=== PATIENT | female | born 1945 | race Two or more races ===

== ENCOUNTER 2017-07-02 07:27 | Day surgery (SDC) | payer MEDICARE, OTHER ==
[~2017-07-02] VITALS: Ht 157.5 cm; Wt 90.7 kg
[2017-07-02 07:57] VITALS: Ht 157.5 cm; Wt 90.7 kg
[2017-07-02] MEDS ORDERED: PROPOFOL 20 ML ONE (08:16)
[2017-07-02] MEDS ORDERED: FENTAnyl 50 MCG/ML VIAL ONE (08:16)
[2017-07-02] MEDS ORDERED: ASPI-664 PO (08:22)
[2017-07-02] MEDS ORDERED: INSULIN SQ (08:22)
[2017-07-02] MEDS ORDERED: AMLO-147 PO (08:22)
[2017-07-02] MEDS ORDERED: LOSA50TA6 PO (08:22)
[2017-07-02] MEDS ORDERED: MTF1000T PO (08:22)
[2017-07-02 08:31] VITALS: BP 172/77; PULSE 75; RESP 18
--- NOTE | 2017-07-02 09:50 | OPPN ---
Date/Time of Note Date/Time of Note DATE: 07/02/17 TIME: 09:48 Operative Report Preoperative Diagnosis Screening Postoperative Diagnosis Multiple colon polyps Internal hemorrhoids Operation/Procedure Performed Colonoscopy biopsy and polypectomy Provider: HEIDI CEBALLOS MD Anesthesia Type: MAC Estimated blood loss: none Transfusion Required: no Specimens Colon polyp Grafts/Implants: none Complications: no HEIDI CEBALLOS MD Jul 02, 2017 09:50
[2017-07-02 10:13] VITALS: BP 121/62; PULSE 73; RESP 14
--- NOTE | 2017-07-02 15:59 | GILP ---
DATE OF PROCEDURE: 07/02/2017 PROCEDURE PERFORMED: Colonoscopy, biopsy and polypectomy. SURGEON: Kieran Mccarthy MD. PREOPERATIVE DIAGNOSIS: Screening colonoscopy. POSTOPERATIVE DIAGNOSES: 1. Colonoscopy all the way to the cecum. 2. Multiple colon polyps. 3. Flat polyp in the right colon was removed in pieces using the snare and electrocautery. 4. Multiple colon polyps all over the colon. They were removed using the biopsy forceps as well as snare and electrocautery. 5. Internal hemorrhoids. INDICATION: Ms. Awilda Boudreaux is a 71-year-old female patient who noticed change in the bowel habits. She never had a screening colonoscopy. Patient was scheduled for screening colonoscopy. The procedure and possible complications were well explained to the patient. She understood and consented to the procedure. PROCEDURE: Under the influence of anesthesia, the colonoscope was carefully introduced in the rectum. Under direct vision, it was advanced all the way to the cecum. FINDINGS: The patient had a large flat polyp in the right colon, and it was removed in pieces using the snare and electrocautery. The patient also had multiple colon polyps all over the colon, and some of them were removed using the biopsy forceps, and others with snare and electrocautery. The patient was noted to have internal hemorrhoids. She tolerated the procedure very well. There was no complication from the procedure. At the end of procedure, she was awake with stable vital signs, and she was discharged home in care of her family. IMPRESSION: Please see postop diagnoses. PLAN: 1. Await histopathology report. 2. Because of the multiple polyps the patient had, and because of the fact the flat polyp in the right colon was removed in pieces, the patient will need repeat colonoscopy in 6 months to remove other small polyps and to make sure there are no remnants left in the flat polyp in the right colon. Dictated By: MD POLLO Pastrana/shaheen/aman /Document#: [id number]
== END 2017-07-02 11:47 | disposition home or self-care (01) ==
LOC: GIL 07:27
PROVIDERS: ATTEND Internal Medicine Gastroenterology
DX: R19.4 Change in bowel habit (principal); K63.5 Polyp of colon; K64.8 Other hemorrhoids; E11.9 Type 2 diabetes mellitus without complications; E66.9 Obesity, unspecified; Z68.36 Body mass index [BMI] 36.0-36.9, adult
CPT/HCPCS: 45385; 82962; 88305; J3010

== ENCOUNTER 2018-01-01 07:20 | Day surgery (SDC) | END 2018-01-01 14:04 | disposition home or self-care (01) ==

== ENCOUNTER 2018-11-25 16:53 | Observation (INO) | payer MEDICARE, OTHER ==
[~2018-11-25] VITALS: Ht 160 cm; Wt 98.9 kg
[~2018-11-25 16:53] MED LIST: AMLO-147 PO; ASPI-817 PO; INSULIN SQ; LOSA50TA14 PO; MTF1000T PO
[2018-11-25] MEDS ORDERED: ASPIRIN 81 MG TAB PO STA (17:20)
[2018-11-25] MEDS ORDERED: NITROGLYCERIN 2% 1 GM OINT PKT TD STA (17:20)
[2018-11-25] MEDS ORDERED: NITROGLYCERIN (SL) 0.4 MG TAB SL PRN ×2 (17:30→19:00)
[2018-11-25] MEDS ORDERED: LOSA100T15 PO (18:14)
[2018-11-25] MEDS ORDERED: AMLO-147 PO (18:14)
[2018-11-25] MEDS ORDERED: ASPI-817 PO (18:14)
[2018-11-25] MEDS ORDERED: NOVO7030 SC (18:15)
[2018-11-25] MEDS ORDERED: METF100010 PO (18:15)
[2018-11-25] MEDS ORDERED: METO-407 PO (18:15)
[2018-11-25] MEDS ORDERED: MULT-130 PO (18:16)
[2018-11-25] MEDS ORDERED: PIOG30TA71 PO (18:16)
[2018-11-25] MEDS ORDERED: HYDR-3672 PO (18:16)
--- NOTE | 2018-11-25 18:55 | ERD ---
ER Documentation Chief Complaint Chief Complaint Complains of chest pain and pressure with SOB x 3 days HPI Patient is a 73-year-old female with hypertension and diabetes who presents with chest pain and shortness of breath. She has had the symptoms for the past 2 weeks. She said that the chest pain is a pressure-like pain in the sternal area which is worsening in intensity. She denies fevers. She tried TheraFlu with no help. She does have a primary doctor. ROS All systems reviewed and are negative except as per history of present illness. Medications Home Meds Reported Medications Multivitamins-Min/Fa/Ginkgo (ONE DAILY FOR WOMEN 50+ ADV TB) 1 Each Tablet, 1 EACH PO DAILY, TAB 11/25/18 Pioglitazone Hcl* (Pioglitazone Hcl*) 30 Mg Tablet, 30 MG PO DAILY, TAB 11/25/18 Hydralazine Hcl* (Hydralazine Hcl*) 50 Mg Tab, 50 MG PO TID, #90 TAB 11/25/18 Metoprolol Tartrate* (Lopressor*) 100 Mg Tablet, 100 MG PO BID, #60 TAB 11/25/18 Insulin Isophan/Regular (Humulin 70/30) 100 Units/Ml Susp, 15 UNIT SC HS, EA 11/25/18 Metformin Hcl* (Metformin Hcl*) 1,000 Mg Tablet, 1000 MG PO WITH BREAKFAST DINNE, #60 TAB 11/25/18 Losartan Potassium* (Losartan Potassium*) 100 Mg Tablet, 100 MG PO DAILY, TAB 11/25/18 Aspirin* (Aspirin* EC) 81 Mg Tablet.dr, 81 MG PO DAILY, TAB 11/25/18 Amlodipine Besylate* (Amlodipine Besylate*) 10 Mg Tablet, 10 MG PO DAILY, #30 TAB 11/25/18 Discontinued Reported Medications [Insulin] No Conflict Check, SQ 07/02/17 Aspirin* (Aspirin* EC) 81 Mg Tablet.dr, 81 MG PO DAILY, TAB 07/02/17 Amlodipine Besylate* (Amlodipine Besylate*) 10 Mg Tablet, 10 MG PO DAILY, #30 TAB 07/02/17 Losartan Potassium* (Losartan Potassium*) 50 Mg Tablet, 50 MG PO DAILY, TAB 07/02/17 Metformin* (Glucophage*) 1,000 Mg Tablet, 1000 MG PO BID, #60 TAB 07/02/17 Allergies Allergies: Coded Allergies: No Known Allergy (Unverified , 11/25/18) PMhx/Soc History of Surgery: Yes (HYSTERECTOMY) Anesthesia Reaction: No Hx Neurological Disorder: No Hx Respiratory Disorders: No Hx Cardiac Disorders: No Hx Psychiatric Problems: No Hx Miscellaneous Medical Probl: No Hx Alcohol Use: No Hx Substance Use: No Hx Tobacco Use: No Smoking Status: Never smoker FmHx Family History: coronary disease Physical Exam Vitals Vital Signs Date Temp Pulse Resp B/P (MAP) Pulse Ox O2 O2 Flow FiO2 Time Delivery Rate 11/25/18 97.8 93 12 122/71 100 Nasal 18:40 (88) Cannula 11/25/18 Nasal 2 17:23 Cannula 11/25/18 97.8 105 20 136/66 99 16:58 (89) Physical Exam Const: No acute distress Head: Atraumatic Eyes: Normal Conjunctiva ENT: Normal External Ears, Nose and Mouth. Neck: Full range of motion. No meningismus. Resp: Clear to auscultation bilaterally Cardio: Regular rate and rhythm, no murmurs Abd: Soft, non tender, non distended. Normal bowel sounds Skin: No petechiae or rashes Back: No midline or flank tenderness Ext: No cyanosis, or edema Neur: Awake and alert Psych: Normal Mood and Affect Result Diagram: 11/25/18 1720 11/25/18 1720 Results 24 hrs Laboratory Tests Test 11/25/18 17:20 White Blood Count 7.6 10^3/ul Red Blood Count 4.02 10^6/ul Hemoglobin 12.0 g/dl Hematocrit 37.2 % Mean Corpuscular Volume 92.5 fl Mean Corpuscular Hemoglobin 29.9 pg Mean Corpuscular Hemoglobin Concent 32.3 g/dl Red Cell Distribution Width 15.0 % Platelet Count 200 10^3/UL Mean Platelet Volume 10.3 fl Immature Granulocytes % 0.400 % Neutrophils % 44.0 % Lymphocytes % 43.0 % Monocytes % 9.8 % Eosinophils % 1.6 % Basophils % 1.2 % Nucleated Red Blood Cells % 0.0 /100WBC Immature Granulocytes # 0.030 10^3/ul Neutrophils # 3.4 10^3/ul Lymphocytes # 3.3 10^3/ul Monocytes # 0.8 10^3/ul Eosinophils # 0.1 10^3/ul Basophils # 0.1 10^3/ul Nucleated Red Blood Cells # 0.0 10^3/ul Sodium Level 137 mmol/L Potassium Level 3.8 mmol/L Chloride Level 101 mmol/L Carbon Dioxide Level 27 mmol/L Anion Gap 9 Blood Urea Nitrogen 17 mg/dl Creatinine 0.77 mg/dl Est Glomerular Filtrat Rate mL/min mL/min Glucose Level 233 mg/dl Calcium Level 9.6 mg/dl Troponin I < 0.012 ng/ml Current Medications Medications Dose Sig/Ramona Start Time Status Last (Trade) Ordered Route PRN Stop Time Admin Dose Reason Admin Aspirin 162 mg ONCE STAT 11/25/18 DC 11/25/18 (Aspirin) PO 17:20 17:43 11/25/18 17:21 1 inch ONCE STAT 11/25/18 DC 11/25/18 Nitroglycerin TD 17:20 17:43 11/25/18 17:21 (Nitroglyceri n 2% Oint) 1 tab Q5M UP TO 3 11/25/18 Nitroglycerin DOSES PRN 17:30 SL CHEST (Nitroglyceri PAIN n (Sl Tab) 0.4 Mg) Ondansetron 4 mg ER BRIDGE 11/25/18 HCl (Zofran PRN IV 19:00 Inj) NAUSEA AND/OR 11/26/18 18:59 VOMITING 650 mg ER BRIDGE 11/25/18 Acetaminophen PRN PO MILD 19:00 (Tylenol PAIN(1-3)OR 11/26/18 18:59 Tab) ELEVATED TEMP Amlodipine 10 mg DAILY PO 11/26/18 UNV Besylate 09:00 (Norvasc) Aspirin 81 mg DAILY PO 11/26/18 UNV (Halfprin) 09:00 Hydralazine 50 mg TID PO 11/25/18 UNV HCl 21:00 (Apresoline) Losartan 100 mg DAILY PO 11/26/18 UNV Potassium 09:00 (Cozaar) Metoprolol 100 mg BID PO 11/25/18 UNV Tartrate 21:00 (Lopressor) Insulin 15 unit QHS SC 11/25/18 UNV Aspart Prota 21:00 70%/Aspart 30% (Novolog Mix (70/ 30) Flexpen) IV Flush 3 ml PER 11/25/18 UNV (NS 3 ml) PROTOCOL IV 19:00 Ondansetron 4 mg Q6H PRN 11/25/18 UNV HCl (Zofran IV NAUSEA 19:00 Inj) AND/OR VOMITING 1 tab Q5M PRN 11/25/18 UNV Nitroglycerin SL CHEST 19:00 PAIN (Nitroglyceri n (Sl Tab) 0.4 Mg) 650 mg Q6H PRN 11/25/18 UNV Acetaminophen PO PAIN 19:00 (Tylenol LEVEL 1-3 OR Tab) FEVER Docusate 100 mg Q12H PRN 11/25/18 UNV Sodium PO 19:00 (Colace) CONSTIPATION Magnesium 30 ml DAILY PRN 11/25/18 UNV Hydroxide PO 19:00 (Milk Of Mag) CONSTIPATION 40 mg DAILY@06 11/26/18 UNV Pantoprazole PO 06:00 (Protonix Tab) Enoxaparin 40 mg DAILY SC 11/26/18 UNV Sodium 09:00 (Lovenox) Ceftriaxone 50 ml @ Q24H IVPB 11/25/18 UNV Sodium 100 mls/hr 19:00 Azithromycin 250 ml @ Q24H IV 11/25/18 UNV 250 mls/hr 19:00 Albuterol 2.5 mg Q2H RESP 11/25/18 UNV (Proventil THERAPY PRN 19:00 0.083% (Neb)) NEB SHORTNESS OF BREATH Albuterol 2.5 mg Q6HWA RESP 11/25/18 UNV (Proventil THERAPY HHN 20:00 0.083% (Neb)) Procedures/MDM EKG read by me: Rate/Rhythm: Regular rate and rhythm at a rate of 86 Intervals: Normal Impression: No evidence of ischemia or arrhythmia Chest x-ray read by radiology. Patient is a 73-year-old female with hypertension and diabetes who presents with chest pain. I am concerned for possible acute coronary syndrome. I doubt pneumonia, pneumothorax, pulmonary embolism, or aortic dissection. The patient will be admitted to the care of Dr. Spain from the panel team to a telemetry observation bed. She was given aspirin and nitroglycerin empirically. Departure Diagnosis: Primary Impression: Chest pain Chest pain type: unspecified Qualified Codes: R07.9 - Chest pain, unspecified Condition: CHRISTOPHER Shultz MD Nov 25, 2018 18:54
[2018-11-25] MEDS ORDERED: ONDANSETRON 4 MG INJ IV PRN ×2 (19:00)
[2018-11-25] MEDS ORDERED: ACETAMINOPHEN 325 MG TAB PO PRN ×2 (19:00)
[2018-11-25] MEDS ORDERED: MAGNESIUM HYDROXIDE 30ML CUP PO PRN (19:00)
[2018-11-25] MEDS ORDERED: GLUCOSE GEL 15 GRAM TUBE PO PRN ×2 (19:00)
[2018-11-25] MEDS ORDERED: DOCUSATE SODIUM 100 MG CAP PO PRN (19:00)
[2018-11-25] MEDS ORDERED: NACL 0.9% 3 ML SYG IV SCH (19:00)
[2018-11-25] MEDS ORDERED: GLUCOSE GEL 15 GRAM TUBE BUCCAL PRN (19:00)
[2018-11-25] MEDS ORDERED: ALBUTEROL 0.083% (NEB) 2.5 MG/3 ML AMP NEB PRN (19:00)
[2018-11-25] MEDS ORDERED: DEXTROSE 50% 50 ML SYRINGE IV PRN ×2 (19:00)
[2018-11-25] MEDS ORDERED: GLUCAGON 1 MG INJ IM PRN (19:00)
--- NOTE | 2018-11-25 19:13 | HP ---
Date/Time of Note Date/Time of Note DATE: 11/25/18 TIME: 19:00 Assessment/Plan VTE Prophylaxis Pharmacological prophylaxis: LMWH Lines/Catheters IV Catheter Type (from Nrsg): Saline Lock Assessment/Plan Assessment/Plan 1. Acute shortness of breath secondary to RLL PNA - Seen on CXR and patient states she has been experiencing respiratory issues for the past 2 weeks - Will started on broad spectrum antibiotics - Nebs q6 and PRN - antitussive for cough suppressant - wean off O2 to maintain saturations 2. Acute chest pain - reproducible and most likely musculoskeletal given coughing for the past 2 weeks - will continue to trend serial troponins - ECHO ordered - If needed will consult cardiology - will check TSH and Lipid panel 3. DM - will check A1c - ISS and accuchecks - hold PO medications - continue on 70/30 qhs 4. HTN - continue home medications and adjust as needed 5. Diet - carb/cardiac 6. GI ppx - PPI 7. DVT ppx - LMWH 8. Disposition - Admit to telemetry for treatment of pneumonia Result Diagram: 11/25/18 1720 11/25/18 1720 Results 24hrs Laboratory Tests Test 11/25/18 17:20 White Blood Count 7.6 Red Blood Count 4.02 L Hemoglobin 12.0 Hematocrit 37.2 Mean Corpuscular Volume 92.5 Mean Corpuscular Hemoglobin 29.9 Mean Corpuscular Hemoglobin Concent 32.3 Red Cell Distribution Width 15.0 H Platelet Count 200 Mean Platelet Volume 10.3 Immature Granulocytes % 0.400 Neutrophils % 44.0 Lymphocytes % 43.0 Monocytes % 9.8 Eosinophils % 1.6 Basophils % 1.2 Nucleated Red Blood Cells % 0.0 Immature Granulocytes # 0.030 Neutrophils # 3.4 Lymphocytes # 3.3 H Monocytes # 0.8 Eosinophils # 0.1 Basophils # 0.1 Nucleated Red Blood Cells # 0.0 Sodium Level 137 Potassium Level 3.8 Chloride Level 101 Carbon Dioxide Level 27 Anion Gap 9 Blood Urea Nitrogen 17 Creatinine 0.77 Est Glomerular Filtrat Rate mL/min Glucose Level 233 H Calcium Level 9.6 Troponin I < 0.012 HPI/ROS Admit Date/Time Admit Date/Time 11/25/18 at 1900 Hx of Present Illness 73 yo F with PMH DM and HTN presented to ED with 3 days of worsening chest discomfort and shortness of breath. Patient states she has been experiencing dry cough for the past 2 weeks. She took Theraflu with no relief. She denies any sick contact, fevers, chills, recent travel, flu like symptoms. She does admit to experiencing this in the past and was hospitalized at [facility]. Patient describes her chest pain as pressure like as if someone is sitting on her chest but denies any radiation, dizziness, nausea, vomiting, or LOC. Patient does follow with PCP. States father of heart condition in his 70s but no family members had any cardiac issues less than 65 yo. Denies any cardi ac issues herself. Sugars have been ranging in the 200s at night and she covers with 70/30. ROS All 12 systems reviewed and pertinent positives as per HPI. All others negative. Constitutional: fatigue; No nausea Eyes: No discharge ENT: No congestion Respiratory: cough, shortness of breath; No sputum, No wheezing Cardiovascular: chest pain, edema; No lightheadedness Gastrointestinal: pain; No constipation, No diarrhea, No nausea, No vomiting Genitourinary: no complaints Musculoskeletal: no complaints Skin: No laceration, No rash Neurologic: No confusion, No dizziness, No focal-weakness, No headache, No syncope Endocrine: no complaints Lymphatic: no complaints Psychological: nl mood/affect Immunologic: no complaints PMH/Family/Social Past Medical History Medical History: diabetes, hypertension Medications Current Medications Amlodipine Besylate (Norvasc) 10 mg DAILY PO ; Start 11/26/18 at 09:00 Aspirin (Halfprin) 81 mg DAILY PO ; Start 11/26/18 at 09:00 Hydralazine HCl (Apresoline) 50 mg TID PO ; Start 11/25/18 at 21:00 Losartan Potassium (Cozaar) 100 mg DAILY PO ; Start 11/26/18 at 09:00 Metoprolol Tartrate (Lopressor) 100 mg BID PO ; Start 11/25/18 at 21:00 Insulin Aspart Prota 70%/Aspart 30% (Novolog Mix (70/ 30) Flexpen) 15 unit QHS S C ; Start 11/25/18 at 21:00 IV Flush (NS 3 ml) 3 ml PER PROTOCOL IV ; Start 11/25/18 at 19:00 Ondansetron HCl (Zofran Inj) 4 mg Q6H PRN IV NAUSEA AND/OR VOMITING; Start 11/25/18 at 19:00 Nitroglycerin (Nitroglycerin (Sl Tab) 0.4 Mg) 1 tab Q5M PRN SL CHEST PAIN; Start 11/25/18 at 19:00 Acetaminophen (Tylenol Tab) 650 mg Q6H PRN PO PAIN LEVEL 1-3 OR FEVER; Start 11/25/18 at 19:00 Docusate Sodium (Colace) 100 mg Q12H PRN PO CONSTIPATION; Start 11/25/18 at 19:00 Magnesium Hydroxide (Milk Of Mag) 30 ml DAILY PRN PO CONSTIPATION; Start 11/25/18 at 19:00 Pantoprazole (Protonix Tab) 40 mg DAILY@06 PO ; Start 11/26/18 at 06:00 Enoxaparin Sodium (Lovenox) 40 mg DAILY SC ; Start 11/26/18 at 09:00 Ceftriaxone Sodium 50 ml @ 100 mls/hr Q24H IVPB ; Start 11/25/18 at 19:00 Azithromycin 250 ml @ 250 mls/hr Q24H IV ; Start 11/25/18 at 19:00 Albuterol (Proventil 0.083% (Neb)) 2.5 mg Q2H RESP THERAPY PRN NEB SHORTNESS OF BREATH; Start 11/25/18 at 19:00 Albuterol (Proventil 0.083% (Neb)) 2.5 mg Q6HWA RESP THERAPY HHN ; Start 11/25/18 at 20:00 Coded Allergies: No Known Allergy (Unverified , 11/25/18) Past Surgical History Past Surgical Hx: other (total hysterectomy) Family History Significant Family History: heart disease Social History Alcohol Use: none Smoking Status: Never smoker Drug Use: none Exam/Review of Systems Vital Signs Vitals Vital Signs Date Temp Pulse Resp B/P (MAP) Pulse Ox O2 O2 Flow FiO2 Time Delivery Rate 11/25/18 97.8 93 12 122/71 100 Nasal 18:40 (88) Cannula 11/25/18 2 17:23 Exam Exam General: Patient is laying in bed, no acute distress. fatigued Mentation: Patient is alert and oriented x4 Head: Normocephalic atraumatic Eyes: EOMI, pupils reactive to light Neck: Supple, nontender, midline Respiratory: Wheezing at bases bilaterally. no crackles appreciated Cardiovascular: regular rate and rhythm, no obvious murmurs Gastrointestinal: soft, mild tenderness to palpation, protuberant, bowel sounds heard. no rebound or guarding Neurological: Moves all extremities spontaneously. no focal deficits appreciated Skin: No new skin lesions Additional Comments Home medications reviewed Imaging: PROCEDURE: XR Chest. CLINICAL INDICATION: Chest pain TECHNIQUE: Single frontal view of the chest was obtained COMPARISON: None FINDINGS: The heart is enlarged. The thoracic aorta is calcified. There is a mild patchy right lower lobe infiltrate versus atelectasis. The lungs are otherwise clear. There is no pleural effusion or pneumothorax. RPTAT: AA IMPRESSION: Mild cardiomegaly. Calcified aorta consistent with atherosclerotic disease. Mild patchy right lower lobe infiltrate versus atelectasis. .Augie Wong MD, MD Date Time Electronically viewed and signed by .Augie Wong MD, MD on 11/25/2018 17:44 RASHAUN REYES MD Nov 25, 2018 19:13
[2018-11-25] MEDS: GUAIFENESIN/DM (SR) TAB PO SCH (22:18)
[2018-11-25 22:46] VITALS: PULSE 77
[2018-11-25 23:02] VITALS: Ht 160 cm; Wt 98.9 kg
[2018-11-25] MEDS: CEFTRIAXONE 1 GM/50 ML (PMX) 50 ML IVPB SCH (23:35)
[2018-11-25] MEDS: ALBUTEROL 0.083% (NEB) 2.5 MG/3 ML AMP HHN SCH (23:45)
[2018-11-25] MEDS: METOPROLOL 100 MG TAB PO SCH (23:48)
[2018-11-25] MEDS: INSULIN ASPART [NOVOLOG] 3 ML PEN SC SCH (23:53)
[2018-11-25 23:57] VITALS: BP 135/62; PULSE 84; RESP 18
[2018-11-26] VITALS (11 sets, daily range): BP systolic 114–125; BP diastolic 56–61; PULSE 69–96; RESP 18
[2018-11-26] MEDS: INSULIN ASP PROT/ASPART (70/30) PEN SC SCH ×2 (00:09→21:23)
[2018-11-26] MEDS: AZITHROMYCIN 500MG/NS (PMX) 250 ML IV SCH ×2 (00:39→19:18)
--- NOTE | 2018-11-26 04:54 | NUR ---
RN Notes: Patient arrived from ER around 2236. Patient ambulatory with steady gait. Patient denied any SOB and c/o of little chest pain and that she feels better than before. Offered pain medication, but patient refused. Patient assessed and skin was assessed with Charge Nurse, Abran. Skin intact; patient refused admission pictures. VS were WNL. Blood sugar was WNL. Patient's pending scheduled medications were administered. Patient educated on how to use incentive spirometer and able to perform return demonstration. Patient sleeping and resting comfortably.
[2018-11-26] MEDS: PANTOPRAZOLE (EC) 40 MG TAB PO SCH (05:58)
--- NOTE | 2018-11-26 06:58 | NUR ---
EOSS: No acute events overnight. Patient's VS WNL. Patient slept throughout the night with no complaints of chest pain or SOB. Hourly rounding conducted. Fall precautions implemented. Continue with plan of care. Will endorse to AM nurse.
[2018-11-26] MEDS: INSULIN ASPART [NOVOLOG] 3 ML PEN SC SCH ×4 (08:00→21:23)
[2018-11-26] MEDS: ALBUTEROL 0.083% (NEB) 2.5 MG/3 ML AMP HHN SCH ×3 (08:00→20:58)
--- NOTE | 2018-11-26 08:00 | NUR ---
OT MALIKA Pt is a 73 yo F with PMH DM and HTN presented to ED with 3 days of worsening chest discomfort and shortness of breath. Patient states she has been experiencing dry cough for the past 2 weeks. PLOF: Pt reports living with her daughter in and apartment with 2 flights of stairs to enter. Pt was independent with all ADL's and ambulated without any DME. Pt owns FWW. CLOF: RN cleared pt for skilled OT tx. Pt received supine in bed and agreeable to tx. Pt AOx4 and stated 4/10 chest pain. Pt performed supine->sit at EOB independently. Pt stated she has a difficult time donning sock and pants at home. OTR educated pt on AE for LB dressing (dressing stick to remove socks, sock aid to walter socks and long handed wrapper cashier to walter and doff pants). Pt proceeded to walter socks sock aid and pants using AE with Mod I. Pt demonstrated STS, functional mob and toilet transfer using FWW with Supervision. OTR educated pt on safety techniques and proper positioning when using FWW. Pt stated she understood and will start using her FWW at home. Pt stood at bathroom sink and completed h/g tasks independently. Pt left supine in bed with all needs met and stable vitals. RN notified. Pt is Mod I/Supervision with ADl's- no further skilled OT warranted. D/C pt Home once medically cleared by .
[2018-11-26] MEDS: GUAIFENESIN/DM (SR) TAB PO SCH ×2 (08:34→21:02)
[2018-11-26] MEDS: METOPROLOL 100 MG TAB PO SCH ×2 (08:34→21:03)
[2018-11-26] MEDS: AMLODIPINE 10 MG TAB PO SCH (08:34)
[2018-11-26] MEDS: ASPIRIN (EC) 81 MG TAB PO SCH (08:34)
[2018-11-26] MEDS: LOSARTAN 50 MG TAB PO SCH (08:35)
[2018-11-26] MEDS: ENOXAPARIN 40 MG/0.4 ML SYG SC SCH (08:42)
--- NOTE | 2018-11-26 09:46 | PN ---
Date/Time of Note Date/Time of Note DATE: 11/26/18 TIME: 09:46 Assessment/Plan VTE Prophylaxis SCD applied (from Nsg): Yes Pharmacological prophylaxis: LMWH Lines/Catheters IV Catheter Type (from Nrsg): Saline Lock Assessment/Plan Assessment/Plan 1. Acute shortness of breath secondary to RLL PNA- resolving - Patient more comfortable this am but still with dry cough - Will transition to PO antibiotics tomorrow if still improving - Nebs q6 and PRN - antitussive for cough suppressant - wean off O2 to maintain saturations 2. Acute chest pain- resolved - most likely musculoskeletal given chronic cough - serial troponins negative - ECHO results pending 3. DM - A1c noted - ISS and accuchecks - hold PO medications - continue on 70/30 qhs 4. HTN - continue home medications 5. Disposition - Continue monitoring for improvement in respiratory status. If remains stable, will transition to PO antibiotics and d/c in am Result Diagram: 11/26/18 0500 11/26/18 0500 Results 24hrs Laboratory Tests Test 11/25/18 17:20 11/25/18 23:33 11/25/18 23:52 11/26/18 05:00 White Blood Count 7.6 6.6 Red Blood Count 4.02 L 3.60 L Hemoglobin 12.0 10.8 L Hematocrit 37.2 32.9 L Mean Corpuscular 92.5 91.4 Volume Mean Corpuscular 29.9 30.0 Hemoglobin Mean Corpuscular 32.3 32.8 Hemoglobin Concent Red Cell 15.0 H 15.3 H Distribution Width Platelet Count 200 179 Mean Platelet Volume 10.3 10.3 Immature 0.400 0.300 Granulocytes % Neutrophils % 44.0 55.4 Lymphocytes % 43.0 28.7 Monocytes % 9.8 12.6 H Eosinophils % 1.6 2.1 Basophils % 1.2 0.9 Nucleated Red Blood 0.0 0.0 Cells % Immature 0.030 0.020 Granulocytes # Neutrophils # 3.4 3.6 Lymphocytes # 3.3 H 1.9 Monocytes # 0.8 0.8 Eosinophils # 0.1 0.1 Basophils # 0.1 0.1 Nucleated Red Blood 0.0 0.0 Cells # Sodium Level 137 140 Potassium Level 3.8 4.6 Chloride Level 101 105 Carbon Dioxide Level 27 29 Anion Gap 9 6 Blood Urea Nitrogen 17 19 Creatinine 0.77 0.78 Est Glomerular Filtrat Rate mL/min Glucose Level 233 H 92 # Hemoglobin A1c 7.5 H Calcium Level 9.6 9.2 Troponin I < 0.012 < 0.012 < 0.012 Creatine Kinase 58 51 Creatine Kinase 1.4 1.1 Index Creatinine Kinase MB 0.80 0.56 (Mass) Bedside Glucose 97 Total Bilirubin 0.1 L Direct Bilirubin 0.00 Indirect Bilirubin 0.1 Aspartate Amino 39 Transf (AST/SGOT) Alanine 36 Aminotransferase (AL T/SGPT) Alkaline Phosphatase 59 Total Protein 7.0 Albumin 3.6 Thyroid Stimulating 1.340 Hormone (TSH) Test 11/26/18 07:53 Bedside Glucose 95 Subjective 24 Hr Interval Summary Free Text/Dictation Patient states shes feeling better but still with dry cough. Chest pressure resolved. No acute overnight events. Exam/Review of Systems Vital Signs Vitals Vital Signs Date Temp Pulse Resp B/P (MAP) Pulse Ox O2 O2 Flow FiO2 Time Delivery Rate 11/26/18 76 20 98 Nasal 2.0 08:59 Cannula 11/26/18 98.6 114/59 07:08 (77) 11/26/18 28 00:34 Intake and Output 11/25/18 11/25/18 11/26/18 1515:00 23:00 07:00 IntakeIntake Total 800 ml BalanceBalance 800 ml Exam General: Patient is laying in bed, no acute distress. Eyes: EOMI, pupils reactive to light Neck: Supple, nontender, midline Respiratory: diminished but no wheezing appreciated. mild crackles at bases Cardiovascular: regular rate and rhythm, no obvious murmurs Gastrointestinal: soft, nontender to palpation, protuberant, bowel sounds heard. no rebound or guarding Neurological: Moves all extremities spontaneously. no focal deficits appreciated Skin: No new skin lesions Medications Medications Current Medications Amlodipine Besylate (Norvasc) 10 mg DAILY PO Last administered on 11/26/18at 08:34; Admin Dose 10 MG; Start 11/26/18 at 09:00 Aspirin (Halfprin) 81 mg DAILY PO Last administered on 11/26/18 08:34; Admin Dose 81 MG; Start 11/26/18 at 09:00 Hydralazine HCl (Apresoline) 50 mg TID PO Last administered on 1/22/19at 08:34; Admin Dose 50 MG; Start 11/25/18 at 21:00 Losartan Potassium (Cozaar) 100 mg DAILY PO Last administered on 11/26/18at 08:35; Admin Dose 100 MG; Start 11/26/18 at 09:00 Metoprolol Tartrate (Lopressor) 100 mg BID PO Last administered on 11/26/18at 08:34; Admin Dose 100 MG; Start 11/25/18 at 21:00 Insulin Aspart Prota 70%/Aspart 30% (Novolog Mix (70/ 30) Flexpen) 15 unit QHS SC Last administered on 11/26/18at 00:09; Admin Dose 15 UNIT; Start 11/25/18 at 21:00 IV Flush (NS 3 ml) 3 ml PER PROTOCOL IV ; Start 11/25/18 at 19:00 Ondansetron HCl (Zofran Inj) 4 mg Q6H PRN IV NAUSEA AND/OR VOMITING; Start 11/25/18 at 19:00 Nitroglycerin (Nitroglycerin (Sl Tab) 0.4 Mg) 1 tab Q5M PRN SL CHEST PAIN; Start 11/25/18 at 19:00 Acetaminophen (Tylenol Tab) 650 mg Q6H PRN PO PAIN LEVEL 1-3 OR FEVER; Start 11/25/18 at 19:00 Docusate Sodium (Colace) 100 mg Q12H PRN PO CONSTIPATION; Start 11/25/18 at 19:00 Magnesium Hydroxide (Milk Of Mag) 30 ml DAILY PRN PO CONSTIPATION; Start 11/25/18 at 19:00 Pantoprazole (Protonix Tab) 40 mg DAILY@06 PO Last administered on 11/26/18at 05:58; Admin Dose 40 MG; Start 11/26/18 at 06:00 Enoxaparin Sodium (Lovenox) 40 mg DAILY SC Last administered on 11/26/18at 08:42; Admin Dose 40 MG; Start 11/26/18 at 09:00 Ceftriaxone Sodium 50 ml @ 100 mls/hr Q24H IVPB Last administered on 11/25/18at 23:35; Admin Dose 100 MLS/HR; Start 11/25/18 at 19:00 Azithromycin 250 ml @ 250 mls/hr Q24H IV Last administered on 11/26/18at 00:39; Admin Dose 250 MLS/HR; Start 11/25/18 at 19:00 Albuterol (Proventil 0.083% (Neb)) 2.5 mg Q2H RESP THERAPY PRN NEB SHORTNESS OF BREATH; Start 11/25/18 at 19:00 Albuterol (Proventil 0.083% (Neb)) 2.5 mg Q6HWA RESP THERAPY HHN Last administered on 11/26/18at 08:00; Admin Dose 2.5 MG; Start 11/25/18 at 20:00 Miscellaneous Information 1 ea NOTE XX ; Start 11/25/18 at 19:00 Glucose (Glutose) 15 gm Q15M PRN PO DECREASED GLUCOSE; Start 11/25/18 at 19:00 Glucose (Glutose) 22.5 gm Q15M PRN PO DECREASED GLUCOSE; Start 11/25/18 at 19:00 Dextrose (D50w Syringe) 25 ml Q15M PRN IV DECREASED GLUCOSE; Start 11/25/18 at 19:00 Dextrose (D50w Syringe) 50 ml Q15M PRN IV DECREASED GLUCOSE; Start 11/25/18 at 19:00 Glucagon (Glucagen) 1 mg Q15M PRN IM DECREASED GLUCOSE; Start 11/25/18 at 19:00 Glucose (Glutose) 15 gm Q15M PRN BUCCAL DECREASED GLUCOSE; Start 11/25/18 at 19:00 Guaifenesin/ Dextromethorphan (Mucinex Dm) 1 tab BID PO Last administered on 11/26/18at 08:34; Admin Dose 1 TAB; Start 11/25/18 at 21:00 Insulin Aspart (Novolog Insulin Pen) NOVOLOG *MILD* ALGORITHM WITH MEALS BEDTIME SC ; Start 11/25/18 at 21:00 RASHAUN REYES MD Nov 26, 2018 09:46
--- NOTE | 2018-11-26 12:50 | NUR ---
PT EVALUATION NOTE: Patient is a 73 year old female admitted to [facility] after presenting to the ER on 11/25/18 with 3 days of worsening chest discomfort and shortness of breath. PMH: HTN, DM PLOF: Patient lives with her daughter in an apartment with 12 stairs to negotiate to access the apartment from the garage. Prior to hospitalization, patient was independent with all functional mobility without an assistive device. Patient has a FWW at home but does not use it. CLOF: Marisol SAWYER cleared patient for PT evaluation. Patient agreeable to participate with PT evaluation, c/o chest pain rated at 5/10. Received patient semi-supine in bed, on supplemental O2 via NC @ 2 l/min. BP 108/57, HR 84, O2 sat 95% on room air. Patient educated in safety awareness, fall prevention and purpose of PT evaluation. Patient able to come to sitting position at the EOB with supervision. Patient c/o min dizziness upon sitting which resolved quickly. Sit to stand without assistive device with SBA. As patient began to ambulate patient began to reach for furniture. Provided patient with FWW and patient ambulated 100 feet with SBA and FWW. Patient slightly unsteady during ambulation however no loss of balance. Encourage patient to use FWW for ambulation, patient in agreement. After ambulation BP 118/56, HR 86, O2 sat 95% on room air. Patient returned to bed after ambulation, replaced on O2 via NC @ 2 l/min, all needs met, call light within reach, bed alarm reset. Marisol SAWYER notified of patient's status at the end of the session. PT RECOMMENDATION: Patient will benefit from skilled inpatient PT intervention to address strength, balance, safety and functional mobility. Anticipate discharge home with family assistance as needed once cleared by MD. Patient has FWW at home, encouraged to use once discharged. No additional DME needs anticipated at this time.
--- NOTE | 2018-11-26 14:13 | NUR ---
SW: AHCD SW met with patient at bedside for AHCD. Patient denies having an AHCD and she verbally designated her daughter Erin ([phone]) as primary surrogate spokesperson, and daughter Laura Buodreaux ([phone]) as secondary spokesperson. Patient states she currently lives at home with daughter Erin at [id number] [place], [place] [id number] [id number]. All questions/ concerns denied at this time. SW remains available as needed throughout patient's treatment process.
[2018-11-26] MEDS: CEFTRIAXONE 1 GM/50 ML (PMX) 50 ML IVPB SCH (18:19)
--- NOTE | 2018-11-26 18:49 | NUR ---
EOSS: A/O x 4, very pleasant pt, VS stable, (+)cough, however no s/sx of distress. Pt ambulated with PT today on RA, O2 sat WNL, however appears to be SOB. Pt also states her chest pain has improved and is now at 1/10. Possible DC tomorrow(refer to MD progress notes). All needs attended, will endorse plan of care to oncoming shift accordingly.
--- NOTE | 2018-11-26 22:28 | RADRPT ---
Echocardiogram Report Patient Name: TOINO GARZA Gender: Female Date: 1945 Study Date: 26-Nov-2018 Edi Consultant: Prabhakar Gutierrez RUST Location: 608-A Ref. Physician: RASHAUN REYES Quality: Technically Difficult Study Procedures: Transthoracic echocardiogram with complete 2D, M-Mode, and doppler examination. Indications: Evaluate Left Ventricular function. 2D/M Mode Doppler Measurement Value Normal Ranges Measurement Value Normal Ranges LVIDd 2D 3.8 3.5 - 5.6 cm AV Peak Scout 1.7 m/sec LVIDs 2D 2.4 2.1 - 4.1 cm AV Peak PG 11.0 mmHg LVPWd 2D 1.3 0.6 - 1.1 cm LVOT Peak Socut 1.5 m/sec IVSd 2D 1.4 0.6 - 1.1 cm LVOT Peak PG 9.0 mmHg AoR Diam 2D 2.9 2.0 - 3.7 cm MV E Peak Scout 1.2 m/sec LA/Ao 2D 1 0 - 1 MV A Peak Scout 1.2 m/sec LA Dimen 2D 3.9 2.3 - 4.0 cm MV E/A 0.9 MV Decel Time 275 msec Lat E` Scout 0.1 m/sec Lateral E/E` 11.6 Med E` Scout 0.1 m/sec MV E/A 0.9 TR Peak Scout 2.9 m/sec TR Peak PG 34.0 mmHg RVSP 42.0 mmHg Findings Left Ventricle: Normal left ventricular systolic function. Normal left ventricular cavity size. Mild concentric left ventricular hypertrophy. Ejection fraction is visually estimated at 65 %. Tissue Doppler/Mitral Doppler indices are consistent with impaired relaxation (Stage I diastolic dysfunction). Right Ventricle: Normal right ventricular size. Normal right ventricular systolic function. Left Atrium: The left atrium is normal in size. Right Atrium: The right atrium is normal in size. Mitral Valve: Mild mitral leaflet calcification. Mild mitral annular calcification. Trace mitral regurgitation. Aortic Valve: No significant aortic stenosis or insufficiency. Aortic valve not well visualized. Aortic cusps appear mildly calcified. Tricuspid Valve: Normal appearance of the tricuspid valve. Estimated peak PA systolic pressure 42 mmHg. There is mild tricuspid regurgitation. Pulmonic Valve: Pulmonic valve not well visualized. There is trace pulmonic regurgitation. Pericardium: Normal pericardium with no significant pericardial effusion. Aorta: Normal aortic root. IVC: Dilated IVC with respiratory collapse consistent with elevated right atrial pressure. Conclusions Normal left ventricular systolic function. Normal left ventricular cavity size. Mild concentric left ventricular hypertrophy. Ejection fraction is visually estimated at 65 %. Tissue Doppler/Mitral Doppler indices are consistent with impaired relaxation (Stage I diastolic dysfunction). Mild mitral leaflet calcification. Mild mitral annular calcification. Trace mitral regurgitation. No significant aortic stenosis or insufficiency. Aortic valve not well visualized. Aortic cusps appear mildly calcified. Normal appearance of the tricuspid valve. Estimated peak PA systolic pressure 42 mmHg. There is mild tricuspid regurgitation. Electronically Signed By: Tim Zimmerman 26-Nov-2018 22:27:06 -0800 Patient Name: TONIO GARZA Study Date: 26-Nov-2018 [id number]
[2018-11-27] VITALS (11 sets, daily range): BP systolic 120–135; BP diastolic 55–74; PULSE 74–167; RESP 18–20
[2018-11-27] MEDS: PANTOPRAZOLE (EC) 40 MG TAB PO SCH (05:13)
--- NOTE | 2018-11-27 06:42 | NUR ---
EOSS Pt AOx4, ambulatory, on RA, sometimes on 2L NC. Pt SR on monitor, vitals stable, no acute events through night, all needs attended to, will endorse to oncoming RN.
[2018-11-27] MEDS: INSULIN ASPART [NOVOLOG] 3 ML PEN SC SCH ×2 (07:44→11:23)
[2018-11-27] MEDS: ALBUTEROL 0.083% (NEB) 2.5 MG/3 ML AMP HHN SCH ×2 (08:24→13:48)
--- NOTE | 2018-11-27 08:55 | PN ---
Date/Time of Note Date/Time of Note DATE: 11/27/18 TIME: 08:55 Assessment/Plan VTE Prophylaxis Risk score (from Nsg)>0 risk: 4 SCD applied (from Nsg): Yes Pharmacological prophylaxis: LMWH Lines/Catheters IV Catheter Type (from Nrsg): Saline Lock Assessment/Plan Assessment/Plan 1. Acute shortness of breath secondary to RLL PNA- resolving - Doing well yesterday off O2 but per nursing patient requested to be kept O2 on this am. Will wean as tolerated today - Will transition to PO antibiotics today - Nebs q6 and PRN - antitussive for cough suppressant 2. Acute chest pain- resolved - most likely musculoskeletal given chronic cough - serial troponins negative - ECHO results noted 3. DM - A1c noted - ISS and accuchecks - hold PO medications - continue on 70/30 qhs 4. HTN - continue home medications 5. Disposition - Will wean O2 and if unable, will assess for need for home O2. - Medically stable for discharge home today Result Diagram: 11/26/18 0500 11/26/18 0500 Results 24hrs Laboratory Tests Test 11/26/18 12:03 11/26/18 18:13 11/26/18 20:56 11/27/18 01:58 Bedside Glucose 145 192 215 117 Test 11/27/18 07:43 Bedside Glucose 124 Subjective 24 Hr Interval Summary Free Text/Dictation Patient states shes feeling better this am but still with dry cough. No acute overnight events. Exam/Review of Systems Vital Signs Vitals Vital Signs Date Temp Pulse Resp B/P (MAP) Pulse Ox O2 O2 Flow FiO2 Time Delivery Rate 11/27/18 78 08:30 11/27/18 18 91 21 08:24 11/27/18 Nasal 2.0 07:46 Cannula 11/27/18 99.1 123/60 07:23 (81) Intake and Output 11/26/18 11/26/18 11/27/18 1515:00 23:00 07:00 IntakeIntake Total 850 ml BalanceBalance 850 ml Exam General: Patient is laying in bed, no acute distress. Neck: Supple, nontender, midline Respiratory: diminished but no wheezing appreciated Cardiovascular: regular rate and rhythm, no obvious murmurs Gastrointestinal: soft, nontender to palpation, protuberant, bowel sounds heard. no rebound or guarding Neurological: Moves all extremities spontaneously. no focal deficits appreciated Skin: No new skin lesions Medications Medications Current Medications Amlodipine Besylate (Norvasc) 10 mg DAILY PO Last administered on 11/26/18at 08:34; Admin Dose 10 MG; Start 11/26/18 at 09:00 Aspirin (Halfprin) 81 mg DAILY PO Last administered on 11/26/18at 08:34; Admin Dose 81 MG; Start 11/26/18 at 09:00 Hydralazine HCl (Apresoline) 50 mg TID PO Last administered on 11/26/18at 21:02; Admin Dose 50 MG; Start 11/25/18 at 21:00 Losartan Potassium (Cozaar) 100 mg DAILY PO Last administered on 11/26/18at 08:35; Admin Dose 100 MG; Start 11/26/18 at 09:00 Metoprolol Tartrate (Lopressor) 100 mg BID PO Last administered on 11/26/18at 21:03; Admin Dose 100 MG; Start 11/25/18 at 21:00 Insulin Aspart Prota 70%/Aspart 30% (Novolog Mix (70/ 30) Flexpen) 15 unit QHS SC Last administered on 11/26/18at 21:23; Admin Dose 15 UNIT; Start 11/25/18 at 21:00 IV Flush (NS 3 ml) 3 ml PER PROTOCOL IV ; Start 11/25/18 at 19:00 Ondansetron HCl (Zofran Inj) 4 mg Q6H PRN IV NAUSEA AND/OR VOMITING; Start 11/25/18 at 19:00 Nitroglycerin (Nitroglycerin (Sl Tab) 0.4 Mg) 1 tab Q5M PRN SL CHEST PAIN; Start 11/25/18 at 19:00 Acetaminophen (Tylenol Tab) 650 mg Q6H PRN PO PAIN LEVEL 1-3 OR FEVER; Start 11/25/18 at 19:00 Docusate Sodium (Colace) 100 mg Q12H PRN PO CONSTIPATION; Start 11/25/18 at 19:00 Magnesium Hydroxide (Milk Of Mag) 30 ml DAILY PRN PO CONSTIPATION; Start 11/25/18 at 19:00 Pantoprazole (Protonix Tab) 40 mg DAILY@06 PO Last administered on 11/27/18at 05:13; Admin Dose 40 MG; Start 11/26/18 at 06:00 Enoxaparin Sodium (Lovenox) 40 mg DAILY SC Last administered on 11/26/18at 08:42; Admin Dose 40 MG; Start 11/26/18 at 09:00 Ceftriaxone Sodium 50 ml @ 100 mls/hr Q24H IVPB Last administered on 11/26/18at 18:19; Admin Dose 100 MLS/HR; Start 11/25/18 at 19:00 Azithromycin 250 ml @ 250 mls/hr Q24H IV Last administered on 11/26/18at 19:18; Admin Dose 250 MLS/HR; Start 11/25/18 at 19:00 Albuterol (Proventil 0.083% (Neb)) 2.5 mg Q2H RESP THERAPY PRN NEB SHORTNESS OF BREATH; Start 11/25/18 at 19:00 Albuterol (Proventil 0.083% (Neb)) 2.5 mg Q6HWA RESP THERAPY HHN Last administered on 11/27/18at 08:24; Admin Dose 2.5 MG; Start 11/25/18 at 20:00 Miscellaneous Information 1 ea NOTE XX ; Start 11/25/18 at 19:00 Glucose (Glutose) 15 gm Q15M PRN PO DECREASED GLUCOSE; Start 11/25/18 at 19:00 Glucose (Glutose) 22.5 gm Q15M PRN PO DECREASED GLUCOSE; Start 11/25/18 at 19:00 Dextrose (D50w Syringe) 25 ml Q15M PRN IV DECREASED GLUCOSE; Start 11/25/18 at 19:00 Dextrose (D50w Syringe) 50 ml Q15M PRN IV DECREASED GLUCOSE; Start 11/25/18 at 19:00 Glucagon (Glucagen) 1 mg Q15M PRN IM DECREASED GLUCOSE; Start 11/25/18 at 19:00 Glucose (Glutose) 15 gm Q15M PRN BUCCAL DECREASED GLUCOSE; Start 11/25/18 at 19:00 Guaifenesin/ Dextromethorphan (Mucinex Dm) 1 tab BID PO Last administered on 11/26/18at 21:02; Admin Dose 1 TAB; Start 11/25/18 at 21:00 Insulin Aspart (Novolog Insulin Pen) NOVOLOG *MILD* ALGORITHM WITH MEALS BEDTIME SC Last administered on 11/26/18at 21:23; Admin Dose 1 UNIT; Start 11/25/18 at 21:00 RASHAUN REYES MD Nov 27, 2018 08:55
[2018-11-27] MEDS: LOSARTAN 50 MG TAB PO SCH (09:14)
[2018-11-27] MEDS: GUAIFENESIN/DM (SR) TAB PO SCH (09:14)
[2018-11-27] MEDS: ASPIRIN (EC) 81 MG TAB PO SCH (09:14)
[2018-11-27] MEDS: AMLODIPINE 10 MG TAB PO SCH (09:14)
[2018-11-27] MEDS: METOPROLOL 100 MG TAB PO SCH (09:15)
[2018-11-27] MEDS: ENOXAPARIN 40 MG/0.4 ML SYG SC SCH (09:38)
[2018-11-27] MEDS ORDERED: ALBU8.5H8 INH (10:32)
[2018-11-27] MEDS ORDERED: Guaifenesin/Dm (Sr) PO (10:32)
[2018-11-27] MEDS ORDERED: AZIT250T13 PO (10:33)
--- NOTE | 2018-11-27 10:35 | PDOCDIS ---
Discharge Instructions DIAGNOSIS Discharge Diagnosis 1. Acute shortness of breath secondary to RLL PNA- resolving 2. Acute chest pain- resolved 3. Diabetes Mellitus 4. HTN CONDITION 2 [id number] Patient Condition: [id number] Stable HOME CARE INSTRUCTIONS: [id number] Diet Instructions: [id number] Low Fat /Cholesterol ACTIVITY: [id number] Activity Restrictions: [id number] No Restrictions FOLLOW UP/APPOINTMENTS Follow-up Plan 1. Follow up with your primary care physician in 1 week 2. Take 3 more days of antibiotics starting today 3. Take Guaifenesin twice a day for another week. If cough improves before t hen, you can stop the medication 4. Use Albuterol inhaler as needed for shortness of breath 5. If symptoms worsen, please go to your closest emergency department RASHAUN REYES MD Nov 27, 2018 10:35
--- NOTE | 2018-11-27 10:56 | NUR ---
pt with discharge order. will wean from 02, will monitor prior to dc. pt refuses to remove 02 when received in am.
--- NOTE | 2018-11-27 11:39 | NUR ---
pt stable on room air.son to cotton picking machine operator [id number]. verified with [facility] re new prescription. 2 rx ready for cotton picking machine operator.
--- NOTE | 2018-11-27 12:33 | NUR ---
computer not working. used computer from 607. made error in saving hydralazine. am dose was given earlier. noon dose was also given. rebooted 604 computer.
--- NOTE | 2018-11-27 15:05 | NUR ---
PT NOTE Therapy day number 2 Subjective Denies pain Pain Scale NUMERIC Pain Intensity 0 (0-10) Patient Stated Goal for Pain Relief 0 (0-10) Pain Level Comment DENIES PAIN Transfer Training Start Time 15:05 Transfer Sit to Stand Ability Supervised Additional Mobility Comments Transfers w/no AD pushing off bed w/BUE Transfer Training End Time 15:15 Total Transfer Training Time 10 min (8-127) Patient uses wheelchair Not Applicable Gait Training Start Time 15:15 Gait Assist Levels Supervised Assistive Devices Front Wheel Walker Ambulation Distance 180 feet Additional Gait Comments reciprocal gait, steady pace, no LOB/buckling Gait Training End Time 15:30 Total Gait Training Treatment Time 15 min (8-127) Weight Bearing Assessment Label Bilat Lower Extremity Weight Bearing Status Full Weight Bearing Stair Climbing Ability Supervised Number of Stairs 12 Stairs Additional Stairs Assist Comments 12 steps x 1 using 1 rail, step to pattern Static Sitting Balance Good Dynamic Sitting Balance Good Standing Static Balance Good Dynamic Standing Balance Fair plus Safety Judgement Good Activity Tolerance Good Post Treatment Pain Intensity 0 0-10 Variance Documentation SEE BELOW AND PT NOTE Total Treament Time 25 min (8-127) Total Minutes 25 Total Units 2 PT Technical Record Comment PT NOTE S: Pt stated, "I am okay. I am just waiting for my son to pick me up." Agreeable for PT and cleared per DIGNA Prado. O: Received pt sitting at EOB. Applied gait belt. STS w/no AD pushing off bed w/BUE Supervised. Gait training performed w/FWW 180' Supervised. Noted reciprocal gait, steady pace, and no LOB/buckling. Pt required Min VCs to maintain distance from AD for safe ambulation. Pt verbalized and demonstrated w/fair return. Stair training performed 12 steps x 1 using 1 rail step to pattern w/VCs for sequence, fair demonstration Supervised. Noted mild SOB upon exertion therefore pt was educated w/breathing exercises for energy conservation. Assisted pt back to room BTB. Pt sat and left at EOB per pt's request w/food tray in front. Call light/phone within reach, bed alarmed, and all needs met. DIGNA Prado informed of pt's status. A: Good tolerance to tx. No c/o dizziness, pain, or nausea throughout tx. Pt reported fatigue post tx. Transfers and gait assistance/distance improved compared to previous tx. P: Continue POC and progress as tolerated.
--- NOTE | 2018-11-27 15:53 | NUR ---
pt teaching re medications side effects.also educated with diabetes and stroke. pt and son verbalized understanding.d/c instructions explained and gave to pt. pt stable.pt denies chest pain and shortness of breath. son understands [place]. explained when to call 911 . instructed to followup with primary care physician 1 week.assisted via wheelchair. took home all belongings. tele monitor and heplock was removed.
--- NOTE | 2018-11-27 15:55 | NUR ---
gave pt printed information regarding medication side effects in indonesian
--- NOTE | 2018-11-27 17:08 | DS ---
Date/Time of Note Date/Time of Note DATE: 11/27/18 TIME: 17:05 Discharge Summary Admission/Discharge Info Admit Date/Time Nov 25, 2018 at 18:36 Discharge Date/Time Nov 27, 2018 at 16:21 Discharge Diagnosis 1. Acute shortness of breath secondary to RLL PNA- resolving 2. Acute chest pain- resolved 3. Diabetes Mellitus 4. HTN Patient Condition: Stable Procedures PROCEDURE: XR Chest. CLINICAL INDICATION: Chest pain TECHNIQUE: Single frontal view of the chest was obtained COMPARISON: None FINDINGS: The heart is enlarged. The thoracic aorta is calcified. There is a mild patchy right lower lobe infiltrate versus atelectasis. The lungs are otherwise clear. There is no pleural effusion or pneumothorax. RPTAT: AA IMPRESSION: Mild cardiomegaly. Calcified aorta consistent with atherosclerotic disease. Mild patchy right lower lobe infiltrate versus atelectasis. .Augie Wong MD, MD Date Time Electronically viewed and signed by .Augie Wong MD, MD on 11/25/2018 17:44 Hx of Present Illness 73 yo F with PMH DM and HTN presented to ED with 3 days of worsening chest discomfort and shortness of breath. Patient states she has been experiencing dry cough for the past 2 weeks. She took Theraflu with no relief. She denies any sick contact, fevers, chills, recent travel, flu like symptoms. She does admit to experiencing this in the past and was hospitalized at [facility]. Patient describes her chest pain as pressure like as if someone is sitting on her chest but denies any radiation, dizziness, nausea, vomiting, or LOC. Patient does follow with PCP. States father of heart condition in his 70s but no family members had any cardiac issues less than 65 yo. Denies any cardiac issues herself. Sugars have been ranging in the 200s at night and she covers with 70/30. Hospital Course Patient was admitted for workup of acute chest pain that was determined to be musculoskeletal since has been coughing for 2 weeks and pain was reproducible. Patient also had normal EKG, negative serial troponins, and ECHO negative for any structural abnormalities. Patient was found to have a RLL pneumonia and treated with nebs, IV antibiotics, and antitussive agents. Patients presenting symptoms improved significantly and on day of discharge, vitals and physical exam were stable. Patient was discharged home in stable condition. Home Meds Active Scripts Azithromycin* (Azithromycin*) 250 Mg Tablet, 250 MG PO DAILY for 3 Days, #3 TAB Prov:RASHAUN REYES MD 11/27/18 Albuterol Sulfate* (Proair HFA*) 8.5 Gm Hfa.aer.ad, 2 PUFF INH Q4H PRN for W HEEZING AND SOB, #1 INHALER 6 Refills Prov:RASHAUN REYES MD 11/27/18 [Guaifenesin/Dm (Sr)] 1 TAB TABSR No Conflict Check, 1 TAB PO BID for 7 Days, #14 TAB Prov:RASHAUN REYES MD 11/27/18 Reported Medications Multivitamins-Min/Fa/Ginkgo (ONE DAILY FOR WOMEN 50+ ADV TB) 1 Each Tablet, 1 EACH PO DAILY, TAB 11/25/18 Pioglitazone Hcl* (Pioglitazone Hcl*) 30 Mg Tablet, 30 MG PO DAILY, TAB 11/25/18 Hydralazine Hcl* (Hydralazine Hcl*) 50 Mg Tab, 50 MG PO TID, #90 TAB 11/25/18 Metoprolol Tartrate* (Lopressor*) 100 Mg Tablet, 100 MG PO BID, #60 TAB 11/25/18 Insulin Isophan/Regular (Humulin 70/30) 100 Units/Ml Susp, 15 UNIT SC HS, EA 11/25/18 Metformin Hcl* (Metformin Hcl*) 1,000 Mg Tablet, 1000 MG PO WITH BREAKFAST DINNE, #60 TAB 11/25/18 Losartan Potassium* (Losartan Potassium*) 100 Mg Tablet, 100 MG PO DAILY, TAB 11/25/18 Aspirin* (Aspirin* EC) 81 Mg Tablet.dr, 81 MG PO DAILY, TAB 11/25/18 Amlodipine Besylate* (Amlodipine Besylate*) 10 Mg Tablet, 10 MG PO DAILY, #30 TAB 11/25/18 Discontinued Reported Medications [Insulin] No Conflict Check, SQ 07/02/17 Aspirin* (Aspirin* EC) 81 Mg Tablet.dr, 81 MG PO DAILY, TAB 07/02/17 Amlodipine Besylate* (Amlodipine Besylate*) 10 Mg Tablet, 10 MG PO DAILY, #30 TAB 07/02/17 Losartan Potassium* (Losartan Potassium*) 50 Mg Tablet, 50 MG PO DAILY, TAB 07/02/17 Metformin* (Glucophage*) 1,000 Mg Tablet, 1000 MG PO BID, #60 TAB 07/02/17 Follow-up Plan 1. Follow up with your primary care physician in 1 week 2. Take 3 more days of antibiotics starting today 3. Take Guaifenesin twice a day for another week. If cough improves before then, you can stop the medication 4. Use Albuterol inhaler as needed for shortness of breath 5. If symptoms worsen, please go to your closest emergency department Primary Care Provider Not On Staff Doctor Time spent on discharge: > 30 minutes Pending Labs Laboratory Tests Test 11/26/18 18:13 11/26/18 20:56 11/27/18 01:58 11/27/18 07:43 Bedside 192 215 117 124 Glucose mg/dL (70-220) mg/dL (70-220) mg/dL (70-220) mg/dL (70-220) Test 11/27/18 11:15 Bedside 177 Glucose mg/dL (70-220) RASHAUN REYES MD Nov 27, 2018 17:08
== END 2018-11-27 16:21 | disposition home or self-care (01) ==
LOC: E/R 16:53 → 6WM 18:36
PROVIDERS: ADMIT Internal Medicine; ATTEND Internal Medicine
DX: R06.02 Shortness of breath (principal); R07.9 Chest pain, unspecified; E11.9 Type 2 diabetes mellitus without complications; I10 Essential (primary) hypertension; Z79.4 Long term (current) use of insulin; Z79.82 Long term (current) use of aspirin; I51.7 Cardiomegaly
CPT/HCPCS: 36415; 71045; 80048; 80076; 82550; 82553; 82962; 83036; 84443; 84484; 85025; 93005; 93306; 94640; 94664; 97116; 97162; 97167; 97530; 99285; G0378; J0456; J0696; J1650; J1815; J1817; 99217